=== PATIENT | female | born 1975 | race Caucasian/White ===

== ENCOUNTER 2018-06-11 15:43 | Emergency (ER) | payer OTHER ==
[~2018-06-11] VITALS: Ht 162.6 cm; Wt 63.5 kg
[2018-06-11 16:43] VITALS: BP 100/62
--- NOTE | 2018-06-11 16:44 | NUR ---
Patient discharged to home in stable conditon. Written and verbal after care instructions given. Patient verbalizes understanding of instructions.
== END 2018-06-11 16:44 | disposition home or self-care (01) ==
LOC: ER 15:45
DX: S60.221A Contusion of right hand, initial encounter (principal); X58.XXXA Exposure to other specified factors, initial encounter; Y93.89 Activity, other specified; Y92.89 Other specified places as the place of occurrence of the external cause; Y99.8 Other external cause status
CPT/HCPCS: 73130; A4663

== ENCOUNTER 2018-08-30 20:19 | Emergency (ER) | END 2018-08-30 21:49 | disposition home or self-care (01) | DX: M94.0 Chondrocostal junction syndrome [Tietze] (principal); M25.512 Pain in left shoulder; F17.210 Nicotine dependence, cigarettes, uncomplicated | CPT/HCPCS: 71045; 93005; 96372; 99283; J1885 ==

== ENCOUNTER 2020-05-26 08:32 | Emergency (ER) | payer OTHER ==
[~2020-05-26] VITALS: Ht 162.6 cm; Wt 68.0 kg
[2020-05-26] MEDS ORDERED: IBUPROFEN 600 MG TABLET PO ONE (09:00)
[2020-05-26] MEDS ORDERED: ACETAMINOPHEN 325 MG TABLET PO ONE (09:00)
[2020-05-26] MEDS ORDERED: IBUPROFEN 600 MG TABLET ONE (09:10)
[2020-05-26] MEDS ORDERED: ACETAMINOPHEN 325 MG TABLET ONE (09:10)
--- NOTE | 2020-05-26 09:45 | NUR ---
Patient discharged to home in stable condition. Written and verbal after care instructions given. Patient verbalizes understanding of instructions. Stressed follow up or return to ER for worsening s/s.
== END 2020-05-26 09:53 | disposition home or self-care (01) ==
LOC: ER 08:32
DX: M77.9 Enthesopathy, unspecified (principal); R03.0 Elevated blood-pressure reading, without diagnosis of hypertension; M19.011 Primary osteoarthritis, right shoulder; F17.200 Nicotine dependence, unspecified, uncomplicated
CPT/HCPCS: 73030; A4663

== ENCOUNTER 2020-06-14 04:54 | Emergency (ER) | payer OTHER ==
[~2020-06-14] VITALS: Ht 162.6 cm; Wt 68.0 kg
[2020-06-14] MEDS ORDERED: ACET-2154 PO (05:09)
[2020-06-14] MEDS ORDERED: IBUP-1958 PO (05:09)
--- NOTE | 2020-06-14 05:20 | NUR ---
DR Posada into eval patient.
--- NOTE | 2020-06-14 05:45 | NUR ---
Ok to be d/c'ed by DR Dawson without shoulder x ray.
== END 2020-06-14 05:50 | disposition home or self-care (01) ==
LOC: ER 04:55
DX: M25.511 Pain in right shoulder (principal)
CPT/HCPCS: A4663

== ENCOUNTER 2021-03-09 02:57 | Emergency (ER) | payer OTHER ==
[~2021-03-09] VITALS: Ht 162.6 cm; Wt 68.0 kg
[~2021-03-09 02:57] MED LIST: ACET-2154 PO; IBUP-1958 PO
--- NOTE | 2021-03-09 03:14 | NUR ---
MD Posada in room to do MSE.
[2021-03-09] MEDS ORDERED: IV NS 1000 ML 1,000 ML IV ONE (03:30)
[2021-03-09] MEDS ORDERED: PIPERACILLIN SODIUM/TAZOBACTAM 3.375 G in IV DEXTROSE 5% 50 ML IV ONE (03:30)
--- NOTE | 2021-03-09 03:45 | NUR ---
Patient does not wish to proceed with medical care recommended by Dr. Posada. Patient given information related to possible complications, up to and including , which could occur as a result of leaving the hospital at this time. Patient verbalizes understanding of risks involved due to leaving against medical advice. Patient has signed AMA form.
[2021-03-09 03:48] VITALS: BP 112/74
[2021-03-09 03:59] LABS: BILIRUBIN,TOTAL 0.2 mg/dL (0.2-1.0); CREATININE 0.9 mg/dL (0.6-1.3); POTASSIUM 4.2 mmol/L (3.5-5.1); TOTAL PROTEIN, SERUM 7.5 g/dL (6.4-8.2)
[2021-03-09 04:02] LABS: MEAN CORPUSCULAR HEMOGLOBIN 30.4 uug (24.7-32.8); MEAN CORPUSCULAR VOLUME 92.8 fL (75.5-95.3); PLATELET COUNT (AUTO) 342 K/uL (179-408)
== END 2021-03-09 03:50 | disposition left against medical advice (07) ==
LOC: ER 02:59
DX: M65.841 Other synovitis and tenosynovitis, right hand (principal)
CPT/HCPCS: 36415; 73130; 85025; A4663

== ENCOUNTER 2021-03-09 04:44 | Emergency (ER) | payer OTHER ==
[~2021-03-09] VITALS: Ht 162.6 cm; Wt 68.0 kg
--- NOTE | 2021-03-09 05:38 | NUR ---
Patient is resting comfortably in bed with eyes closed, no acute distress noted.
--- NOTE | 2021-03-09 06:17 | NUR ---
Patient is resting comfortably in bed with eyes closed. No acute distress noted.
[2021-03-09] MEDS ORDERED: PIPERACILLIN SODIUM/TAZOBACTAM 3.375 G in IV DEXTROSE 5% 50 ML IV ONE (06:45)
[2021-03-09] MEDS ORDERED: IV NS 1000 ML 1,000 ML IV ONE (06:45)
[2021-03-09] MEDS ORDERED: PIPERACILLIN/TAZOBACTAM/D5W 50 ML IV ONE (06:56)
[2021-03-09] MEDS ORDERED: KETOROLAC TROMETHAMINE 30 MG INJ IVP ONE (07:00)
--- NOTE | 2021-03-09 07:11 | NUR ---
Hand off report given to Kaleigh CABAN.
--- NOTE | 2021-03-09 07:14 | NUR ---
Pt awake, A/O x4, awaiting transfer by [facility].
[2021-03-09] MEDS ORDERED: KETOROLAC TROMETHAMINE 30 MG INJ ONE (07:17)
--- NOTE | 2021-03-09 08:20 | NUR ---
Dr Wesley galvan to Dr Loyd from case planner of [facility]. Pt states being pain free.
--- NOTE | 2021-03-09 08:32 | NUR ---
Patient is resting comfortably in bed with eyes closed, NAD noted.
--- NOTE | 2021-03-09 09:30 | NUR ---
Called in report to [facility], spoke to Leeanna CABAN.
--- NOTE | 2021-03-09 09:48 | NUR ---
....RX, Zofran 4mg was ordered on wrong pt. Non adminestred.
--- NOTE | 2021-03-09 09:49 | NUR ---
Report given to transfering sock mender, all belongings sent w/ pt. Pt left ER in stable condition.
[2021-03-09] MEDS ORDERED: ONDANSETRON 4 MG/2 ML VIAL IV ONE (10:00)
== END 2021-03-09 09:51 | disposition short-term general hospital (02) ==
LOC: ER 04:46
DX: M65.9 Synovitis and tenosynovitis, unspecified (principal); F17.200 Nicotine dependence, unspecified, uncomplicated; Z20.822 Contact with and (suspected) exposure to COVID-19; D72.829 Elevated white blood cell count, unspecified
CPT/HCPCS: 96365; 96375; 99285; J1885; J2543; A4663; J7030

== ENCOUNTER 2022-06-09 18:24 | Emergency (ER) | payer OTHER ==
[~2022-06-09] VITALS: Ht 162.6 cm; Wt 75.3 kg
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
--- NOTE | 2022-06-09 19:15 | NUR ---
Dr. Coates at bedside for MSE.
[2022-06-09] MEDS ORDERED: OXYC-128 PO (19:31)
[2022-06-09 19:49] VITALS: BP 126/82
== END 2022-06-09 19:50 | disposition home or self-care (01) ==
LOC: ER 18:25
DX: S76.012A Strain of muscle, fascia and tendon of left hip, initial encounter (principal); V28.59XA Other motorcycle passenger injured in noncollision transport accident in traffic accident, initial encounter; Y92.410 Unspecified street and highway as the place of occurrence of the external cause; F17.210 Nicotine dependence, cigarettes, uncomplicated
CPT/HCPCS: A4663

== ENCOUNTER 2023-01-10 08:45 | Emergency (ER) | payer OTHER ==
[~2023-01-10] VITALS: Ht 162.6 cm; Wt 71.2 kg
[~2023-01-10 08:45] MED LIST changes: -ACET-2154 PO; -IBUP-1958 PO; +OXYC-128 PO
[2023-01-10] MEDS ORDERED: LIDOCAINE HCL 1% 20 ML VIAL ONE (08:58)
[2023-01-10] MEDS ORDERED: LIDOCAINE HCL 1% 20 ML VIAL IJ ONE (09:00)
--- NOTE | 2023-01-10 09:02 | NUR ---
Female vertical roll operator accompanied female patient for (Dr Murray).
[2023-01-10] MEDS ORDERED: CEPH500T PO (09:30)
[2023-01-10] MEDS ORDERED: SULF1TAB48 PO (09:30)
[2023-01-10] MEDS ORDERED: IBUP-1955 PO (09:30)
[2023-01-10 09:42] VITALS: BP 120/66
== END 2023-01-10 09:43 | disposition home or self-care (01) ==
LOC: ER 08:45
DX: K61.0 Anal abscess (principal); F17.210 Nicotine dependence, cigarettes, uncomplicated; Z88.5 Allergy status to narcotic agent; Z79.899 Other long term (current) drug therapy
CPT/HCPCS: A4663; J3490

== ENCOUNTER 2023-01-12 09:52 | Emergency (ER) | payer OTHER ==
[~2023-01-12] VITALS: Ht 162.6 cm; Wt 71.2 kg
[~2023-01-12 09:52] MED LIST changes: +CEPH500T PO; +IBUP-1955 PO; +SULF1TAB48 PO
--- NOTE | 2023-01-12 10:44 | NUR ---
PT WAS EVALUATED BY DR CARBAJAL. PT WAS D/C'd TO HOME. D/C INSTRUCTIONS GIVEN TO THE PT BY DR CARBAJAL.
[2023-01-12 10:49] VITALS: BP 146/74
== END 2023-01-12 10:49 | disposition home or self-care (01) ==
LOC: ER 09:52
DX: K61.0 Anal abscess (principal); F17.210 Nicotine dependence, cigarettes, uncomplicated; Z88.5 Allergy status to narcotic agent; Z79.1 Long term (current) use of non-steroidal anti-inflammatories (NSAID); Z79.899 Other long term (current) drug therapy
CPT/HCPCS: A4663